=== PATIENT | male | born 1955 | race Caucasian/White ===

== ENCOUNTER 2017-11-11 15:31 | Emergency (ER) | payer BC ==
[2017-11-11 15:49] VITALS: O2SAT 97
[2017-11-11] MEDS ORDERED: KEFLEX 500 MG PO ONE (16:05)
[2017-11-11] MEDS ORDERED: XYLOCAINE 1% HCL 20 ML MDV IJ ONE (16:05)
[2017-11-11] MEDS ORDERED: KEFLEX 500 MG ONE (16:37)
--- NOTE | 2017-11-11 17:22 | ERPHSYRPT ---
- History of Present Illness Time Seen by Provider: 11/11/17 16:07 Source: patient Exam Limitations: no limitations Patient Subjective Stated Complaint: put screw bit through pad of finger on right hand Triage Nursing Assessment: patient alert and orientedx3, gait is steady, ambulates well, right middle finger has puncture wound to the posterior side Physician History: Pt was drilling and accidentally drilled through the tip of his right middle finger before driving here. He denies other injury or complaints. He is not sure about his tetanus status. Occurred: just prior to arrival Method of Injury: other (drilling, puncture wound) Quality: intermittent Severity of Pain-Max: mild Severity of Pain-Current: mild Extremities Pain Location: 3rd finger: right Modifying Factors: Improves With: movement Associated Symptoms: none Allergies/Adverse Reactions: No Known Drug Allergies Allergy (Unverified 05/10/15 14:58) Hx Tetanus, Diphtheria Vaccination/Date Given: No Hx Influenza Vaccination/Date Given: No Hx Pneumococcal Vaccination/Date Given: No Immunizations Up to Date: No - Review of Systems Constitutional: No Symptoms Musculoskeletal: Other (puncture wound right middle finger) - Past Medical History Pertinent Past Medical History: Yes Neurological History: No Pertinent History ENT History: No Pertinent History Cardiac History: Hypertension Respiratory History: No Pertinent History Endocrine Medical History: No Pertinent History Musculoskeletal History: No Pertinent History GI Medical History: No Pertinent History History: No Pertinent History Psycho-Social History: No Pertinent History - Past Surgical History Past Surgical History: Yes Neuro Surgical History: No Pertinent History Cardiac: No Pertinent History Respiratory: No Pertinent History Gastrointestinal: No Pertinent History Genitourinary: No Pertinent History Musculoskeletal: Orthopedic Surgery Male Surgical History: No Pertinent History Other Surgical History: MENISCUS TEARS IN BOTH KNEES. PLATE PLACED IN RIGTH WRIST. PLATE ON RIGHT ANKLE - Social History Smoking Status: Never smoker Exposure to second hand smoke: No Drug Use: none Patient Lives Alone: No - Nursing Vital Signs Nursing Vital Signs: Initial Vital Signs Temperature 98.1 F 11/11/17 15:48 Pulse Rate 84 11/11/17 15:48 Respiratory Rate 18 11/11/17 15:48 Blood Pressure 182/126 11/11/17 15:48 O2 Sat by Pulse Oximetry 97 11/11/17 15:48 Pain Scale Pain Intensity 3 - Physical Exam General Appearance: no apparent distress Eyes, Ears, Nose, Throat Exam: normal ENT inspection Neck Exam: normal inspection, non-tender Cardiovascular/Respiratory Exam: chest non-tender, normal breath sounds, regular rate/rhythm, heart sounds normal Abdominal Exam: non-tender, soft Back Exam: normal inspection Neuro/Tendon Exam: normal motor functions Mental Status Exam: alert, oriented x 3 Skin Exam: normal color, warm, dry, other (4-5 mm irregular laceration, puncture wound on the tip of the right middle finger, no bleeding or hematoma, no nail injury. ) SpO2 Interpretation: normal SpO2: 97 Oxygen Delivery: Room Air - Course Nursing assessment & vital signs reviewed: Yes Ordered Tests: Active Orders 24 hr Category Date Time Status Prepare for Sutures STAT Care 11/11/17 16:05 Active Sutures STAT Care 11/11/17 16:06 Active Wound Care STAT Care 11/11/17 16:05 Active HAND (MINIMUM 3 VIEWS) Stat Exams 11/11/17 16:06 Taken Medication Summary Discontinued Medications Generic Name Dose Route Start Last Admin Trade Name Freq PRN Reason Stop Dose Admin Cephalexin HCl 500 mg 11/11/17 16:05 11/11/17 16:38 Keflex 500 Mg PO 11/11/17 16:06 500 mg STAT ONE Administration Cephalexin HCl Confirm 11/11/17 16:37 Keflex 500 Mg Administered 11/11/17 16:38 Dose 500 mg .ROUTE .STK-MED ONE Lidocaine HCl 5 ml 11/11/17 16:05 Xylocaine 1% Hcl 20 Ml Mdv IJ 11/11/17 16:06 STAT ONE - Progress Progress: unchanged Progress Note: 11/11/17 17:21 Puncture wound explored, and irrigated with saline under sterile circumstances, pt tolerated it well. - Departure Time of Disposition: 17:22 Departure Disposition: Home Clinical Impression: Puncture wound of finger Qualifiers: Encounter type: initial encounter Qualified Code(s): S61.239A - Puncture wound without foreign body of unspecified finger without damage to nail, initial encounter Condition: Stable Critical Care Time: No Referrals: TANG QUIROZ MD [Primary Care Provider] - Additional Instructions: Cleanse wound daily with antiseptic solution, and change clean sterile dressing , return if severe pain, swelling, purulent discharge or fever> 102 F, follow up with your physician in 2-3 days! Prescriptions: Cephalexin Mh 500 mg [Keflex 500 mg] 500 mg PO Q6H 7 Days #28 capsule
[2017-11-11] MEDS ORDERED: Adacel Vial IM ONE ×2 (17:25→17:31)
[2017-11-11] MEDS ORDERED: BACIGUENT PACKET ONE (17:31)
[2017-11-11 17:37] VITALS: BP 143/88; PULSE 78
[2017-11-11] MEDS ORDERED: XYLOCAINE 1% HCL 20 ML MDV ONE (18:50)
--- NOTE | 2017-11-11 19:54 | XRAY ---
Indication: 3rd finger drilling injury. Comparison: None 3 views of the right hand demonstrates old distal radial fracture with intact fixation hardware and old nonunited ulnar styloid fracture. No other bony, articular, or soft tissue abnormalities.
== END 2017-11-11 17:42 | disposition home or self-care (01) ==
LOC: ED 15:31
DX: S61.232A Puncture wound without foreign body of right middle finger without damage to nail, initial encounter (principal); W29.8XXA Contact with other powered hand tools and household machinery, initial encounter
CPT/HCPCS: 73130; 90471; 90715; 96372; 99283; 99284; A9270-GY

== ENCOUNTER 2023-02-19 12:01 | Emergency (ER) | payer MEDICARE, BC ==
--- NOTE | 2023-02-19 12:07 | ERPHSYRPT ---
- History of Present Illness Time Seen by Provider: 02/19/23 12:07 Source: patient Exam Limitations: no limitations Physician History: This is a right-handed 67-year-old white male patient who was creating a deck when his left fourth (ring) finger was pinched by a 2 x 10 board. Patient's tetanus status is up-to-date. Patient does not think the finger is broken and declines an x-ray of his left hand. Occurred: just prior to arrival Quality: constant, aching Severity of Pain-Max: mild Severity of Pain-Current: mild Extremities Pain Location: 4th finger: left (Superficial skin flap) Modifying Factors: Improves With: movement Associated Symptoms: none Allergies/Adverse Reactions: No Known Drug Allergies Allergy (Unverified 05/10/15 14:58) Home Medications: No Reportable Medications [No Reported Medications] 02/19/23 [History] Hx Tetanus, Diphtheria Vaccination/Date Given: No Hx Influenza Vaccination/Date Given: No Hx Pneumococcal Vaccination/Date Given: No Travel Risk - International Travel Have you traveled outside of the country in past 3 weeks: No - Coronavirus Screening Are you exhibiting any of the following symptoms?: No Close contact with a COVID-19 positive Pt in past 14-21 Days: No - Review of Systems Constitutional: No Symptoms Eyes: No Symptoms Ears, Nose, & Throat: No Symptoms Respiratory: No Symptoms Cardiac: No Symptoms Abdominal/Gastrointestinal: No Symptoms Genitourinary Symptoms: No Symptoms Musculoskeletal: Injury (Left fourth digit) Skin: Other (Flap laceration, superficial skin left fourth digit) Neurological: No Symptoms Psychological: No Symptoms Endocrine: No Symptoms Hematologic/Lymphatic: No Symptoms Immunological/Allergic: No Symptoms All Other Systems: Reviewed and Negative - Past Medical History Pertinent Past Medical History: Yes Neurological History: No Pertinent History ENT History: No Pertinent History Cardiac History: Hypertension Respiratory History: No Pertinent History Endocrine Medical History: No Pertinent History Musculoskeletal History: No Pertinent History GI Medical History: No Pertinent History History: No Pertinent History Psycho-Social History: No Pertinent History - Past Surgical History Past Surgical History: Yes Neuro Surgical History: No Pertinent History Cardiac: No Pertinent History Respiratory: No Pertinent History Gastrointestinal: No Pertinent History Genitourinary: No Pertinent History Musculoskeletal: Orthopedic Surgery Male Surgical History: No Pertinent History Other Surgical History: MENISCUS TEARS IN BOTH KNEES. PLATE PLACED IN RIGTH WRIST. PLATE ON RIGHT ANKLE - Social History Smoking Status: Never smoker Exposure to second hand smoke: No Drug Use: none Patient Lives Alone: No - Nursing Vital Signs Nursing Vital Signs: Initial Vital Signs Temperature 97.0 F 02/19/23 12:06 Pulse Rate 83 02/19/23 12:06 Respiratory Rate 18 02/19/23 12:06 Blood Pressure 188/98 02/19/23 12:06 O2 Sat by Pulse Oximetry 98 02/19/23 12:06 Pain Scale Pain Intensity 4 - Physical Exam General Appearance: no apparent distress, alert, anxiety Eyes, Ears, Nose, Throat Exam: normal ENT inspection, moist mucous membranes Neck Exam: normal inspection, non-tender, supple, full range of motion Cardiovascular/Respiratory Exam: chest non-tender, no respiratory distress Abdominal Exam: non-tender Back Exam: normal inspection, normal range of motion, No CVA tenderness, No vertebral tenderness Shoulder Exam: normal inspection, non-tender, no evidence of injury, normal ROM Elbow/Forearm Exam: normal inspection, non-tender, no evidence of injury, normal ROM Wrist Exam: normal inspection, non-tender, no evidence of injury, normal ROM Hand Exam: laceration (Superficial 1 cm x 1 cm x 1 cm skin flap that is well adhered. Patient has full range of motion and is neurovascularly intact. No evidence of tendon injury.), soft tissue tenderness, No bone tenderness, No deformity Neuro/Tendon Exam: normal sensation, normal motor functions, normal tendon functions, responds to pain, no evidence tendon injury Mental Status Exam: alert, oriented x 3, cooperative Skin Exam: other (Skin flap laceration as described above) Procedures - Laceration/Wound Repair Left Finger Time of Procedure: 12:25 Wound Location: Left, hand (Fourth digit) Wound Length (cm): 1 Wound's Depth, Shape: flap (Superficial. Skin well adhered) Wound Explored: clean Irrigated: Yes Hibiclens Prep: Yes Wound Repaired With: Steri-strips, Dermabond (After cleansing with Hibiclens and prepped with benzoin swab) Sterile Dressing Applied?: Yes - Course Nursing assessment & vital signs reviewed: Yes - Progress Progress: improved Progress Note: 02/19/23 12:56 This patient's medical issue is of low complexity. The level of complexity in the work-up performed is based on review of the patient's past medical history, review of patient's medication list, review of the patient's drug allergy list, history present illness and physical findings on examination. This patient does not require laboratory radiographic studies. Counseled pt/family regarding: diagnosis, need for follow-up Medical Desision Making - Diagnostic Testing Diagnostic test were ordered, analyzed, and reviewed by me: No - Risk of complications Minimal Risk: Minimal risk of morbidity - Departure Departure Disposition: Home Clinical Impression: Finger laceration Condition: Stable Critical Care Time: No Referrals: TANG QUIROZ MD [Primary Care Provider] - Follow up/PCP as directed Additional Instructions: Keep current pressure dressing in place until the evening of 02/20/2023. At that time, you may remove the top pressure dressing and leave the Steri-Strips in place. You may allow the soapy water rinse off the fourth digit of the left hand. Blot dry use a anthropology department chair to dry the site. Rebandage the site. Over the next 5 to 7 days trim the Steri-Strips as they curl up. Do not remove them until they fall off on their own. Use Tylenol and ibuprofen for pain control.
[2023-02-19 12:11] VITALS: RESP 18
[2023-02-19] MEDS ORDERED: NORCO 5/325 MG ONE (13:04)
[2023-02-19] MEDS: NORCO 5/325 MG PO ONE (13:06)
[2023-02-19 13:09] VITALS: BP 172/88; PULSE 78; TEMP 97.5; O2SAT 97
== END 2023-02-19 13:13 | disposition home or self-care (01) ==
LOC: ED 12:01
DX: S61.215A Laceration without foreign body of left ring finger without damage to nail, initial encounter (principal); W23.0XXA Caught, crushed, jammed, or pinched between moving objects, initial encounter; Y93.H3 Activity, building and construction; I10 Essential (primary) hypertension
CPT/HCPCS: 12001; 99281; A9270-GY